=== PATIENT | male | born 1970 | race Caucasian/White ===

== ENCOUNTER 2020-09-09 15:12 | Emergency (ER) | payer OTHER ==
[~2020-09-09] VITALS: Ht 167.6 cm; Wt 68.0 kg
[2020-09-09 15:21] VITALS: BP 125/87
--- NOTE | 2020-09-09 15:25 | NUR ---
OF5
--- NOTE | 2020-09-09 16:57 | NUR ---
KATE NOVEL SWAB COLLECTED AND HANDED TO LAB.
[2020-09-09 16:59] VITALS: BP 125/87
--- NOTE | 2020-09-09 16:59 | NUR ---
Patient discharged with v/s stable. Written and verbal after care instructions given and explained. Patient verbalized understanding. Ambulatory with steady gait. All questions addressed prior to discharge. Advised to follow up with PMD.
== END 2020-09-09 16:59 | disposition home or self-care (01) ==
LOC: MED 15:12
DX: M79.10 Myalgia, unspecified site (principal); Z20.828 Contact with and (suspected) exposure to other viral communicable diseases; R68.83 Chills (without fever)
CPT/HCPCS: 99283; U0003